=== PATIENT | female | born 1975 | race African-American/Black ===

== ENCOUNTER 2017-09-05 23:42 | Emergency (ER) | payer OTHER ==
[~2017-09-05] VITALS: Ht 172.7 cm; Wt 81.0 kg
[~2017-09-05 23:42] MED LIST: PLAVIX PO
[2017-09-06] MEDS ORDERED: PREDNISONE 20MG TABLET PO ONE (00:15)
[2017-09-06] MEDS ORDERED: FAMOTIDINE 20MG TABLET PO ONE (00:15)
[2017-09-06] MEDS ORDERED: DIPHENHYDRAMINE 50MG/ML VIAL IV ONE (00:30)
[2017-09-06] MEDS ORDERED: ONDANSETRON HCL 4MG/2ML VIAL IV ONE (00:30)
[2017-09-06 01:50] VITALS: BP 127/70
== END 2017-09-06 01:54 | disposition home or self-care (01) ==
LOC: ER 23:42
DX: T78.02XA Anaphylactic reaction due to shellfish (crustaceans), initial encounter (principal); X58.XXXA Exposure to other specified factors, initial encounter
CPT/HCPCS: 96374; 96375; 99284; J1200; J2405; J7512

== ENCOUNTER 2021-03-11 18:24 | Emergency (ER) | payer OTHER ==
[~2021-03-11] VITALS: Ht 167.6 cm; Wt 80.0 kg
[2021-03-11] MEDS ORDERED: ACETAMINOPHEN 325MG TABLET PO STA (18:48)
[2021-03-11] MEDS ORDERED: SODIUM CHLORIDE 0.9% 1,000 ML IV ONE (19:00)
[2021-03-11 19:39] LABS: BASOPHILS % 1.4 % (0.0-2.0); EOSINOPHILS % 0.8 % (0.0-5.0); HEMATOCRIT. 31.7 % (36.0-48.0); HEMOGLOBIN. 9.5 g/dL (12.0-16.0); LYMPHOCYTES % 25.2 % (20.0-50.0); MEAN CORPUSCULAR HEMOGLOBIN 18.1 pg (28.0-32.0); MEAN CORPUSCULAR VOLUME 60.3 fL (81.0-99.0); MEAN PLATELET VOLUME 8.5 fl (7.4-10.4); MONOCYTES % 5.7 % (2.0-8.0); NEUTROPHILS % 66.9 % (40.0-76.0); PLATELET 530 x1000/uL (130-400); RED BLOOD CELL COUNT 5.26 mill/uL (4.2-5.4)
[2021-03-11 19:43] LABS: CHLORIDE 106 mEq/L (98-107)
[2021-03-11 20:25] LABS: PLATELET ESTIMATE INCREASED
[2021-03-11 20:57] VITALS: BP 138/58
== END 2021-03-11 20:58 | disposition home or self-care (01) ==
LOC: ER 18:24
DX: B34.9 Viral infection, unspecified (principal); E86.0 Dehydration; Z91.013 Allergy to seafood; Z91.018 Allergy to other foods; Z20.822 Contact with and (suspected) exposure to COVID-19
CPT/HCPCS: 36415; 71045; 80053; 85025; 96360; 99284; C9803; J7030; U0003; U0005